=== PATIENT | female | born 1950 | race Caucasian/White ===

== ENCOUNTER 2021-09-20 21:11 | Emergency (ER) | payer MEDICARE ==
[~2021-09-20] VITALS: Ht 165.1 cm; Wt 74.1 kg
[~2021-09-20 21:11] MED LIST: CEPHALEXIN500 M1 PO; LORTAB 5/500 501 TAB PO; NO HOME MEDICATIONS
[2021-09-20] MEDS ORDERED: AMOXICILLIN 8751 TAB PO (22:04)
[2021-09-20] MEDS ORDERED: NORCO 325 MG-51 TAB PO (22:06)
[2021-09-20 23:00] VITALS: BP 137/68; PULSE 71; TEMP 98.2
== END 2021-09-20 23:00 | disposition home or self-care (01) ==
LOC: COL.ER 21:11
DX: S81.851A Open bite, right lower leg, initial encounter (principal); W54.0XXA Bitten by dog, initial encounter

== ENCOUNTER 2021-10-02 12:20 | Day surgery (SDC) | payer MEDICARE ==
[~2021-10-02] VITALS: Ht 165.1 cm; Wt 74.0 kg
[~2021-10-02 12:20] MED LIST changes: +AMOXICILLIN 8751 TAB PO; +NORCO 325 MG-51 TAB PO
[2021-10-02 13:34] VITALS: BP 149/72; PULSE 77; TEMP 97.5
[2021-10-02] MEDS ORDERED: PROTONIX 40MG T40 MG PO (13:43)
[2021-10-02] MEDS ORDERED: SYNTHROID0.05 MG/TA PO (13:44)
[2021-10-02] MEDS ORDERED: LIPITOR20 MG PO (13:44)
[2021-10-02] MEDS ORDERED: EFFEXOR-XR150 MG PO (13:45)
[2021-10-02] MEDS ORDERED: HCTZ12.5TAB PO (13:45)
[2021-10-02] MEDS ORDERED: MOTRIN 600600 MG/TAB PO (16:51)
[2021-10-02] MEDS ORDERED: NORCO 325 MG-51 TAB PO (16:51)
[2021-10-02 17:20] VITALS: BP 154/68; PULSE 73; TEMP 97.5
--- NOTE | 2021-10-02 17:20 | NUR ---
PT BACK TO BAY 8 PER CART FROM PACU. RECEIVED REPORT FROM ILEANA WONG. VS OBTAINED. CALL LIGHT WITHIN REACH. PT VERBALIZED UNDERSTANDING. DRESSING IS C/D/I. WOUND VAC WORKING APPROPRIATELY. WILL CONTINUE TO MONITOR PT.
--- NOTE | 2021-10-02 17:25 | NUR ---
PT TOLERATING PO WITHOUT DIFFICULTY. WILL CONTINUE TO MONITOR PT.
[2021-10-02 17:35] VITALS: BP 142/67; PULSE 83
--- NOTE | 2021-10-02 17:35 | NUR ---
PT TOLERATING SPRITE AND MUFFIN. PT DENIES ANY DISCOMFORT. PT RESTING COMFORTABLY. WILL CONTINUE TO MONITOR PT.
--- NOTE | 2021-10-02 17:45 | NUR ---
IV DC'D. TOLERATED WELL.
[2021-10-02 17:50] VITALS: BP 139/56; PULSE 74
--- NOTE | 2021-10-02 17:50 | NUR ---
PT DENIES ANY DISCOMFORT. PT STATES SHE IS READY FOR DISCHARGE. WILL CONTINUE TO MONITOR PT.
--- NOTE | 2021-10-02 18:10 | NUR ---
DISCHARGE EDUCATION COMPLETED WITH PT AND HER [id number]. VERBALIZED UNDERSTANDING OF HOME AND FOLLOW UP CARE. ALL QUESTIONS ANSWERED. DISCAHRGE PAPERWORK GIVEN TO PT.
--- NOTE | 2021-10-02 18:18 | NUR ---
PT OFF UNIT PER WHEELCHAIR. DISCHARGED TO HOME WITH DAUGHTER IN LAW PER PERSONAL VEHICLE.
== END 2021-10-02 18:19 | disposition home or self-care (01) ==
LOC: SDCO 12:20
DX: S81.851A Open bite, right lower leg, initial encounter (principal); W54.0XXA Bitten by dog, initial encounter; Y92.9 Unspecified place or not applicable
CPT/HCPCS: J0171; J2405; J2704; J3010; J7120